=== PATIENT | female | born 1990 | race Caucasian/White ===

== ENCOUNTER 2020-10-13 03:55 | Inpatient (IN) | payer BC, OTHER ==
[2020-10-13] MEDS ORDERED: CARBOPROST TROMETHAMINE 250 MCG/ML 1 ML AMP IM PRN (04:39)
[2020-10-13] MEDS ORDERED: TERBUTALINE 1 MG/ML VIAL SQ PRN (04:39)
[2020-10-13] MEDS ORDERED: OXYTOCIN 10 UNIT/ML 1 ML VIAL IM PRN (04:39)
[2020-10-13] MEDS ORDERED: METHYLERGONOVINE 0.2 MG/ML 1 ML AMP IM PRN (04:39)
[2020-10-13] MEDS ORDERED: LIDOCAINE 0.5% (PF) 5 MG/ML (50 ML SDV) SQ PRN (04:39)
[2020-10-13] MEDS ORDERED: AMPICILLIN 2,000 MG in SODIUM CHLORIDE 0.9% 100 ML IVPB STA (04:41)
[2020-10-13] MEDS ORDERED: OXYTOCIN 30 UNITS/500 ML NS 30 UNIT in SALINE 1 500ML.BAG IV SCH ×2 (04:45→13:45)
[2020-10-13] MEDS: LACTATED RINGERS 1,000 ML IV SCH ×2 (05:24→07:53)
[2020-10-13 05:47] LABS: Basophils % (A) 1 %; Eosinophils % (A) 1 %; HCT 35.8 % (34.0-46.0); HGB 11.4 gm/dL (11.4-16.0); Lymphocytes # (A) 3.2 k/uL (1.0-4.8); Lymphocytes % (A) 44 %; MCH 29.3 pg (25.0-35.0); MCHC 31.8 g/dL (31.0-37.0); MCV 92.3 fL (80.0-100.0); Mean Platelet Volume 12.8; Monocytes # (A) 0.4 k/uL (0-1.0); Monocytes % (A) 6 %; Neutrophils # (A) 3.3 k/uL (1.3-7.7); Neutrophils % (A) 46 %; Platelet Count 146 k/uL (150-450); RBC 3.88 m/uL (3.80-5.40); RDW 15.4 % (11.5-15.5); WBC 7.1 k/uL (3.8-10.6)
[2020-10-13] MEDS ORDERED: LABETALOL 5 MG/ML VIAL MDV IVP PRN ×4 (05:54→17:26)
[2020-10-13] MEDS ORDERED: hydrALAZINE HCL 20 MG/ML 1 ML VIAL IVP PRN (05:54)
[2020-10-13 06:12] LABS: Appearance,Urine Clear (Clear); Bilirubin,Urine Negative (Negative); Color,Urine Yellow; Glucose,Urine (UA) Negative (Negative); Ketones,Urine Negative (Negative); PH, Urine 6.5 (5.0-8.0); Protein,Urine 2+ (Negative)
[2020-10-13 06:13] LABS: Blood,Urine Negative (Negative); Leukocyte Esterase,Urine Negative (Negative); Nitrite,Urine Negative (Negative); Urobilinogen,Urine <2.0 mg/dL (<2.0)
[2020-10-13 06:16] LABS: Uric Acid 10.2 mg/dL (3.7-7.4)
[2020-10-13 06:31] LABS: Creatinine,Urine Random 93.2 mg/dL
--- NOTE | 2020-10-13 06:31 | P.HPOB ---
History of Present Illness H&P Date: 10/13/20 Chief Complaint: SROM 9-year-old presents at 36 weeks and 1 day with rupture of membranes around 3:00 this morning. The fluid is clear and her cervix is 3 cm dilated, 60% effaced, and -2 station. She is rakesh irregularly. heart tones 1:30 with moderate variability and reactive. Her blood pressures are elevated up to 170s over 100s. Labetalol was brought to the floor for repeat push it her blood pressures came down to 150s over 80s. Labs were drawn and her platelet count is 146 and she has 2+ protein, PC ratio was not back yet. Patient denies headache, vision changes, right upper quadrant pain. Review of Systems All systems: negative Constitutional: Denies chills, Denies fever Eyes: denies blurred vision, denies pain Ears, nose, mouth and throat: Denies headache, Denies sore throat Cardiovascular: Denies chest pain, Denies shortness of breath Respiratory: Denies cough Gastrointestinal: Denies abdominal pain, Denies diarrhea, Denies nausea, Denies vomiting Genitourinary: Denies dysuria, Denies hematuria Musculoskeletal: Denies myalgias Integumentary: Denies pruritus, Denies rash Neurological: Denies numbness, Denies weakness Psychiatric: Denies anxiety, Denies depression Endocrine: Denies fatigue, Denies weight change Past Medical History Past Medical History: No Reported History Additional Past Medical History / Comment(s): Obstetric history: This is her first and she's seen Dr. Nagel since 7 weeks gestation. Blood type is A+, rubella immune, RPR nonreactive, hepatitis B negative, HIV nonreactive. GBS positive. She did have a choroid plexus cyst and echogenic intracardiac focus in the tricuspid valve: Both of those have resolved. History of Any Multi-Drug Resistant Organisms: None Reported Additional Past Surgical History / Comment(s): [place] teeth Past Anesthesia/Blood Transfusion Reactions: No Reported Reaction Past Psychological History: No Psychological Hx Reported Smoking Status: Never smoker Past Alcohol Use History: None Reported Past Drug Use History: None Reported - Past Family History Mother Family Medical History: No Reported History Medications and Allergies Home Medications Medication Instructions Recorded Confirmed Type Acetaminophen Tab [Tylenol Tab] 500 mg PO Q6H 10/13/20 10/13/20 History Pnv No.95/Ferrous Fum/Folic AC 1 tab PO DAILY 10/13/20 10/13/20 History [ Multivitamin Tablet] Allergies Allergy/AdvReac Type Severity Reaction Status Date / Time No Known Allergies Allergy Verified 10/13/20 04:22 Exam Osteopathic Statement: *. No significant issues noted on an osteopathic structural exam other than those noted in the History and Physical/Consult. Vital Signs Temp Pulse Resp BP Pulse Ox 10/13/20 04:28 98.1 F 52 L 16 169/99 100 Intake and Output 10/12/20 10/12/20 10/13/20 14:59 22:59 06:59 Output Total 200 Balance -200 Output: Urine 200 Straight 100 Other: Weight 59.421 kg Heart: Regular rate and rhythm Lungs: Clear to auscultation bilaterally Abdomen: Soft, nontender Extremities: Negative Homans sign, 2+ out of 4 DTR Results Result Diagrams: 10/13/20 05:24 10/13/20 05:24 Abnormal Lab Results - Last 24 Hours (Table) 10/13/20 10/13/20 Range/Units 05:24 05:24 Plt Count 146 L (150-450) k/uL BUN 22 H (7-17) mg/dL Uric Acid 10.2 H (3.7-7.4) mg/dL Assessment and Plan (1) Spontaneous rupture of membranes Current Visit: Yes Status: Acute Code(s): TNX4911 - SNOMED Code(s): 672410455 (2) Preeclampsia Current Visit: Yes Status: Acute Code(s): O14.90 - UNSPECIFIED PRE- ECLAMPSIA, UNSPECIFIED TRIMESTER SNOMED Code(s): 354155821 Plan: 1. Admit to family place 2. Monitor blood pressures closely and treat accordingly 3. Seizure precautions 4. Pitocin augmentation if necessary 5. Anticipate normal vaginal delivery
[2020-10-13 06:50] LABS: Protein/Creatinine Ratio,Urine 3.659
[2020-10-13] MEDS ORDERED: SODIUM CHLORIDE 0.9% 100 ML BAG ONE (07:33)
[2020-10-13] MEDS ORDERED: fentaNYL (PF) 50 MCG/ML 5 ML AMP ONE (07:33)
[2020-10-13] MEDS ORDERED: ROPIVACAINE 5MG/ML 20ML VIAL ONE (07:33)
[2020-10-13] MEDS ORDERED: MAGNESIUM SULFATE-WATER PMX 4 GM in WATER FOR INJECTION 1 100ML.BAG IVPB ONE ×2 (09:02→09:08)
--- NOTE | 2020-10-13 09:05 | P.PN ---
Progress Note - Text Progress Note Date: 10/13/20 Patient is seen and evaluated. Her blood pressures are improved. She has a mild headache on the right side no other signs or symptoms of severe features, however, labs have returned and her platelets are 146 in her protein creatinine ratio 3.7. It is the diagnosis of preeclampsia has been made and we will initiate magnesium sulfate therapy with a 4 g bolus followed by 2 g an hour until she delivers. She is now already 7-7/2 cm will plan to use straight catheter with her epidural and an decide on whether not is that [facility] Marshall catheter once we removed Marshall but forward with her delivery. We'll maintain very strict I's and O's and be very cautious with fluids moving forward as well. All questions were answered for she and her family and will plan continue current care for now.
[2020-10-13] MEDS: AMPICILLIN 1,000 MG in SODIUM CHLORIDE 0.9% 50 ML IVPB SCH (09:13)
[2020-10-13] MEDS: MAGNESIUM SULFATE-WATER PMX 20 GM in WATER FOR INJECTION 1 500ML.BAG IV SCH ×3 (09:56→22:00)
[2020-10-13] MEDS: IBUPROFEN 600 MG TAB PO PRN (13:25)
[2020-10-13] MEDS ORDERED: BENZOCAINE/MENTHOL SPRAY 1 GM/SPRAY AEROSOL TOPICAL PRN (13:44)
[2020-10-13] MEDS ORDERED: bisacodyL 10 MG SUPP RECTAL PRN (13:44)
[2020-10-13] MEDS ORDERED: ZOLPIDEM 5 MG TAB PO PRN (13:44)
[2020-10-13] MEDS ORDERED: diphenhydrAMINE 25 MG CAP PO PRN (13:44)
[2020-10-13] MEDS ORDERED: diphenhydrAMINE 50 MG/ML 1 ML VIAL IVP PRN (13:44)
[2020-10-13] MEDS ORDERED: SIMETHICONE 80 MG CHEWABLE PO PRN (13:44)
[2020-10-13] MEDS ORDERED: LANOLIN CREAM 5 GM TUBE TOPICAL PRN (13:44)
[2020-10-13] MEDS ORDERED: HYDROCORTISONE 2.5% RECTAL CREAM 30 GM TUBE RECTAL PRN (13:44)
[2020-10-13] MEDS ORDERED: ACETAMINOPHEN TAB 325 MG TAB PO PRN (13:44)
--- NOTE | 2020-10-13 13:56 | P.PROBDLV ---
Vaginal Delivery Note - . Vaginal Delivery Note: Normal spontaneous vaginal delivery viable male infant Apgars 8 and 9 delivery time is 1226 hrs. Please see dictated H&P and progress notes per Dr. Jeffers on this patient's admission. In brief summary this is a pleasant 29-year-old 1 para 0 female 36 and one sevenths weeks gestation who is admitted to labor and delivery with spontaneous rupture membranes at approximately 3:00 this morning. On admission patient was found to be grossly ruptured. Patient also was found to have elevated blood pressures and preeclampsia labs were significantly abnormal. Patient was placed on magnesium sulfate and given IV antibiotics. Patient's labor progressed quickly and she pushed for approximately 1 hour and 15 minutes. Patient pushed the head to the perineum. Posterior perineum was infiltrated with 1% lidocaine and a midline episiotomy is made to facilitate delivery. We then have controlled delivery of the infant's head over the perineum. Mouth and nares are bulb suctioned. There was a nuchal cord that was easily reduced. With gentle downward traction we then have deliver the anterior posterior shoulder and rest this 's body. This is a vigorous viable male infant Apgars 8 and 9 delivery time is 1226 hrs. After delivery of the infant the umbilical cord is loud quit pulsating is then doubly clamped and cut. The placenta spontaneously delivered intact. Inspection of the perineum shows a second-degree laceration was repaired with 3-0 Vicryl in the usual fashion. Excellent reapproximation is noted. All counts are correct 3. Estimated blood loss is 100 mL. and mother are stable delivery room. Patient will be continued on oral labetalol and IV magnesium sulfate.
[2020-10-13] MEDS ORDERED: LABETALOL 100 MG TAB PO SCH (14:00)
[2020-10-13] MEDS: LABETALOL 100 MG TAB PO SCH (18:26)
--- NOTE | 2020-10-13 22:46 | P.PN ---
Progress Note - Text Progress Note Date: 10/13/20 Patient is seen and evaluated again this evening. She is significant the symptomatic on the mag sulfate and a stat mag level was drawn revealing 9.6. This is above the therapeutic level and will decrease mag sulfate to 1 g an hour. Her blood pressures have remained labile. Last few blood pressures following a normal 130/80 blood pressure in the 160s over 90s again. Due to this will increase her labetalol dosage to 200 mg 4 times a day and reevaluate once blood pressures are normalized for long-term management. She denies any other signs or symptoms of preeclampsia and other than being tired and feeling unsteady with the mag sulfate she is feeling well. Deep tendon reflexes are dec reased to 1+.
[2020-10-14] MEDS: LABETALOL 200 MG TAB PO SCH ×4 (00:12→18:19)
[2020-10-14] MEDS: LACTATED RINGERS 1,000 ML IV SCH (00:12)
[2020-10-14] MEDS: IBUPROFEN 600 MG TAB PO PRN (00:12)
[2020-10-14] MEDS: AMPICILLIN 1,000 MG in SODIUM CHLORIDE 0.9% 50 ML IVPB SCH (05:44)
[2020-10-14] MEDS: LABETALOL 100 MG TAB PO SCH (05:44)
[2020-10-14 05:54] LABS: Basophils % (A) 0 %; Eosinophils % (A) 0 %; HCT 31.6 % (34.0-46.0); HGB 10.1 gm/dL (11.4-16.0); Lymphocytes # (A) 2.7 k/uL (1.0-4.8); Lymphocytes % (A) 21 %; MCH 29.3 pg (25.0-35.0); MCV 91.7 fL (80.0-100.0); Mean Platelet Volume 12.7; Monocytes # (A) 0.5 k/uL (0-1.0); Monocytes % (A) 4 %; Neutrophils # (A) 9.9 k/uL (1.3-7.7); Neutrophils % (A) 74 %; Platelet Count 126 k/uL (150-450); RBC 3.44 m/uL (3.80-5.40); RDW 15.9 % (11.5-15.5); WBC 13.3 k/uL (3.8-10.6)
[2020-10-14 07:17] LABS: Anisocytosis (M) Present; Large Platelets Present; Polychromasia Present
--- NOTE | 2020-10-14 07:32 | P.PNOBGVD ---
Subjective - Subjective Principal diagnosis: day 1: Severe preeclampsia Interval history: Patient is seen and evaluated this morning. Her blood pressures are significantly improved through the night with increasing her labetalol to 200 mg every 6 hours. May very well be able to decrease to 2-8 hours once blood pressures are fully stabilized. Mag level is pending this morning but she appears more awake and alert following the decrease in her magnesium sulfate to 1 g per hour. Overall she looks well and she is feeling well. She continues to have no signs or symptoms of or features of severe preeclampsia with continue current care for now. We'll plan discontinuation of mag sulfate a 24-hour with removal of Marshall catheter and then close observational care and treatment moving forward. Patient reports: Reports appetite normal, Reports voiding normally : doing well Objective - Latest Vital Signs Latest vital signs: Vital Signs Temp Pulse Resp BP BP Pulse Ox 10/14/20 06:30 58 L 16 126/81 97 10/14/20 05:30 58 L 16 126/76 96 10/14/20 04:30 65 16 120/79 96 10/14/20 03:30 74 14 126/84 98 10/14/20 02:30 56 L 16 127/83 98 10/14/20 01:30 65 16 137/82 10/14/20 00:30 60 16 137/82 10/13/20 23:30 96.5 F L 73 16 124/81 98 10/13/20 22:30 67 16 137/79 99 10/13/20 21:30 61 16 163/81 10/13/20 20:31 61 16 139/79 10/13/20 19:41 95.9 F L 65 16 163/97 98 10/13/20 19:00 63 16 158/93 10/13/20 18:00 96 F L 65 14 156/93 10/13/20 17:00 18 169/95 10/13/20 16:15 96.5 F L 56 L 19 163/88 10/13/20 15:30 62 16 159/96 97 10/13/20 14:30 99.0 F 62 16 155/89 97 10/13/20 14:00 38 L 17 155/91 10/13/20 13:29 98.2 F 81 17 158/90 10/13/20 13:15 90 18 139/90 10/13/20 13:00 92 18 152/87 06/14/21 12:45 88 18 148/85 10/13/20 12:30 99.3 F 113 H 18 144/72 Intake and Output 10/13/20 10/14/20 10/14/20 22:59 06:59 14:59 Intake Total 1030 440 Output Total 3050 1250 Balance -2019 Intake: IV 500 200 Magnesium Sulfate-Water 200 Pmx 20 gm In Water For Injection 1 500ml.bag @ 1 GM/HR 25 mls/hr IV .Q20H MARIA G Rx#:[id number] Magnesium Sulfate-Water 500 Pmx 20 gm In Water For Injection 1 500ml.bag @ 2 GM/HR 50 mls/hr IV .Q10H MARIA G Rx#:[id number] Intake, IV Titration 530 240 Amount Lactated Ringers 1,000 ml 30 240 @ 125 mls/hr IV .Q8H MARIA G Rx#:[id number] Magnesium Sulfate-Water 500 Pmx 20 gm In Water For Injection 1 500ml.bag @ 2 GM/HR 50 mls/hr IV .Q10H MARIA G Rx#:[id number] Output: Urine 3050 1250 Other: Voiding Method Indwelling Catheter Weight 57.334 kg - Exam Lungs: bilateral: normal Chest: Normal S1, Normal S2 Extremities: Present: normal Abdomen: Present: normal appearance, soft Uterus: Present: normal, firm - Labs Labs: Abnormal Lab Results - Last 24 Hours (Table) 10/13/20 10/14/20 Range/Units 20:06 05:29 WBC 13.3 H (3.8-10.6) k/uL RBC 3.44 L (3.80-5.40) m/uL Hgb 10.1 L (11.4-16.0) gm/dL Hct 31.6 L (34.0-46.0) % RDW 15.9 H (11.5-15.5) % Plt Count 126 L (150-450) k/uL Neutrophils # 9.9 H (1.3-7.7) k/uL Magnesium 9.6 H* (1.6-2.3) mg/dL
[2020-10-14] MEDS: SENNOSIDES-DOCUSATE SODIUM 1 EACH TAB PO PRN ×2 (07:41→20:09)
[2020-10-14 12:07] LABS: Albumin 2.4 g/dL (3.5-5.0); Calcium 7.4 mg/dL (8.4-10.2); Potassium 4.6 mmol/L (3.5-5.1); Total Bilirubin 0.4 mg/dL (0.2-1.3); Total Protein 4.8 g/dL (6.3-8.2)
[2020-10-14 20:50] VITALS: RESP 16
[2020-10-15] MEDS: LABETALOL 200 MG TAB PO SCH ×2 (00:48→06:06)
[2020-10-15] MEDS: LACTATED RINGERS 1,000 ML IV SCH ×3 (00:56→10:48)
[2020-10-15] MEDS: IBUPROFEN 600 MG TAB PO PRN ×2 (04:11→14:18)
[2020-10-15] MEDS: SENNOSIDES-DOCUSATE SODIUM 1 EACH TAB PO PRN (08:01)
[2020-10-15] MEDS: MAGNESIUM SULFATE-WATER PMX 20 GM in WATER FOR INJECTION 1 500ML.BAG IV SCH (10:48)
--- NOTE | 2020-10-15 13:30 | P.DS ---
Providers Date of admission: 10/13/20 04:24 Expected date of discharge: 10/15/20 Attending physician: Jn Nagel Primary care physician: Stated None Hospital Course: Patient is overall doing very well. She denies any signs or symptoms of preeclampsia at this time. Her blood pressures of been in the 130s to 140s over 80s on 200 mg of labetalol every 86 hours. We're trying to decrease to every 8 hours prior to discharge and we'll check her blood pressure another couple of times prior discharge her blood pressures remained stable plan to 8 hour labetalol at home. All questions are answered for her and discharge instruction were very thoroughly reviewed including discharge instructions with preeclamptic precautions. Her heart is otherwise regular, lungs clear, extremities without pain. Abdomen soft uterus is firm and lochia is reported light. She is feeling well at this time and will plan to follow-up on Tuesday for a blood pressure check in our office. All the questions are answered for her and she is stable for discharge this time. Patient Condition at Discharge: Good Plan - Discharge Summary New Discharge Prescriptions: New Labetalol [Trandate] 200 mg PO TID 30 Days #90 tablet No Action Acetaminophen Tab [Tylenol Tab] 500 mg PO Q6H Pnv No.95/Ferrous Fum/Folic AC [ Multivitamin Tablet] 1 tab PO DAILY Discharge Medication List Acetaminophen Tab [Tylenol Tab] 500 mg PO Q6H 10/13/20 [History] Pnv No.95/Ferrous Fum/Folic AC [ Multivitamin Tablet] 1 tab PO DAILY 10/13/20 [History] Labetalol [Trandate] 200 mg PO TID 30 Days #90 tablet 10/15/20 [Rx] Follow up Appointment(s)/Referral(s): Jn Nagel MD [STAFF PHYSICIAN] - 11/24/20 11:15 am Activity/Diet/Wound Care/Special Instructions: The lifting, limit stairs and driving, and pelvic rest. If any high temperatures, heavy bleeding, or severe pain call my office. Instructions for pre-clamped symptoms also again reviewed in great detail and she will report to the emergency room for any severe headache, epigastric pain, visual changes or any other signs or symptoms of and 2. Discharge Disposition: HOME SELF-CARE
[2020-10-15] MEDS ORDERED: LABETALOL 200 MG TAB PO SCH (14:30)
[2020-10-15 17:08] VITALS: BP 147/79; PULSE 57; TEMP 98.7
== END 2020-10-15 18:00 | disposition home or self-care (01) | DRG 807 ==
LOC: FBPOP 03:55 → 4FBP 04:24
PROVIDERS: ADMIT Obstetrics & Gynecology; ATTEND Obstetrics & Gynecology
PROC: 10E0XZZ Delivery of Products of Conception, External Approach (ICD-10-PCS; principal; 2020-10-13)
PROC: 0KQM0ZZ Repair Perineum Muscle, Open Approach (ICD-10-PCS; 2020-10-13)
DX: O15.1 Eclampsia complicating labor (principal); Z37.0 Single live birth; O14.14 Severe pre-eclampsia complicating childbirth; O69.81X0 Labor and delivery complicated by cord around neck, without compression, not applicable or unspecified; O70.1 Second degree perineal laceration during delivery; O99.824 Streptococcus B carrier state complicating childbirth; Z3A.36 36 weeks gestation of pregnancy
CPT/HCPCS: 59025; 80053; 81001; 82565; 82570; 83615; 83735; 84112; 84156; 84450; 84460; 84520; 84550; 85025; 86850; 86900; 86901; 88307; 99213

== ENCOUNTER 2022-07-29 12:23 | Emergency (ER) | payer OTHER ==
[2022-07-29 12:27] VITALS: RESP 18; TEMP 98
--- NOTE | 2022-07-29 12:51 | ED ---
General Adult HPI - General Chief complaint: Chest Pain Stated complaint: Chest tightness, headache Time Seen by Provider: 07/29/22 12:28 Source: patient Mode of arrival: ambulatory Limitations: no limitations - History of Present Illness Initial comments: Dictation was produced using [employer] dictation software. please excuse any grammatical, word or spelling errors. Chief Complaint: 31-year-old female presents to the emergency department with chest pain History of Present Illness: Patient's 31-year-old female with recently diagnosed hypertension she was up today around 7 AM. She after waking had a very mild earlyheadache. Progressed to a concert to become more noticeable. This is not the worse headache of her life. She has headaches that are usually in the back of her head. Sustained emergency department her headache is clearly resolved. She was recently started on lisinopril. Patient was at work when her coworkers felt like she did appear well so she came to the ER. She had some waxing and waning blood pressures since this morning. Denies any fevers. She did have some chest pressure that smiled. Resolved on its own. Nonradiating. She did feel like she felt clammy. She does have family history of cardiac disease. The ROS documented in this emergency department record has been reviewed and confirmed by me. Those systems with pertinent positive or negative responses have been documented in the HPI. All other systems are other negative and/or noncontributory. PHYSICAL EXAM: General Impression: Alert and oriented x3, not in acute distress HEENT: Normocephalic atraumatic, extra-ocular movements intact, pupils equal and reactive to light bilaterally, mucous membranes moist. Cardiovascular: Heart regular rate and rhythm Chest: Able to complete full sentences, no retractions, no tachypnea Abdomen: abdomen soft, non-tender, non-distended, no organomegaly Musculoskeletal: Pulses present and equal in all extremities, no peripheral edema Motor: no focal deficits noted Neurological: CN II-XII grossly intact, no focal motor or sensory deficits noted Skin: Intact with no visualized rashes Psych: Normal affect and mood ED course: 31-year-old feel presents emergency Department with multiple complaints. Primary complaint is chest pain. Chest pain is atypical with typical features. Vital signs upon arrival are within acceptable limits. Nursing notes and chart review was performed EKG interpreted by me: Ventricular rate 74, sinus rhythm,. 137, QRS 89, QTC 394. No LA prolongation, no QTC prolongation, no ST or T-wave changes noted. Overall, this EKG is unremarkable Was pt. sent in by a medical professional or institution (LEON Arreguin, ENGINEERING ILLUSTRATOR, urgent ca re, hospital, or [facility]...) When possible be specific @ -No Did you speak to anyone other than the patient for history (EMS, parent, family, police, friend...)? What history was obtained from this source @ -No Did you review nursing and triage notes (agree or disagree)? Why? @ -I reviewed and agree with nursing and triage notes Were old charts reviewed (outside hosp., previous admission, EMS record, old EKG, old radiological studies, urgent care reports/EKG's, [facility] records)? Report findings @ -No old charts were reviewed Differential Diagnosis (chest pain, altered mental status, abdominal pain women, abdominal pain men, vaginal bleeding, musculoskeletal, weakness, fever, dyspnea, syncope, headache, dizziness, GI bleed, back pain, seizure, CVA, palpatations, mental health)? @ -Differential Chest Pain: Stable Angina, Unstable Angina, STEMI, NSTEMI Aortic Dissection, Pneumothorax, Musculoskeletal, Esophageal Spasm GERD, Cholecystitis, Pancreatitis, Zoster, this is not meant to be an all-inclusive list. EKG interpreted by me (3pts min.). @ -See above X-rays interpreted by me (1pt min.). @ -non acute CT interpreted by me (1pt min.). @ -None done U/S interpreted by me (1pt. min.). @ -None done What testing was considered but not performed or refused? (CT, X-rays, U/S, labs)? Why? @ -None What meds were considered but not given or refused? Why? @ -None Did you discuss the management of the patient with other professionals (pro fessionals i.e. LEON Arreguin, ENGINEERING ILLUSTRATOR, lab, RT, psych nurse, geriatric social worker, advertising coordinator, teacher, forestry technical officer, medical case worker)? Give summary @ -No Was smoking cessation discussed for >3mins.? @ -No Was critical care preformed (if so, how long)? @ -No Were there social determinants of health that impacted care today? How? (Homelessness, low income, unemployed, alcoholism, drug addiction, transporta tion, low edu. Level, literacy, decrease access to med. care, longterm, rehab)? @ -No Was there de-escalation of care discussed even if they declined (Discuss DNR or withdrawal of care, Hospice)? DNR status @ -No What co-morbidities impacted this encounter? (DM, HTN, Smoking, COPD, CAD, Cancer, CVA, ARF, Chemo, Hep., AIDS, mental health diagnosis, sleep apnea, morbid obesity)? @ -None Was patient admitted / discharged? Hospital course, mention meds given and route, prescriptions, significant lab abnormalities, going to OR and other pertinent info. @ -31-year-old feel presents emergency department with atypical chest pain typical features. Laboratory evaluation is unremarkable. Patient evaluated at bedside at 2:55 PM denies any symptoms at this time. Pain is atypical with typical features. She has no high-risk features. Disposition options were discussed with patient. After sure decision-making she would prefer to be discharged follow up with primary care doctor. Patient given her strict return precautions. Undiagnosed new problem with uncertain prognosis? @ -No Drug Therapy requiring intensive monitoring for toxicity (Heparin, Nitro, Insulin, Cardizem)? @ -No Were any procedures done? @ -No Diagnosis/symptom? Acute, or Chronic, or Acute on Chronic? Uncomplicated (without systemic symptoms) or Complicated (systemic symptoms)? @ -1. Acute chest pain, no high-risk features Side effects of treatment? @ -No Exacerbation, Progression, or Severe Exacerbation? @ -No Poses a threat to life or bodily function? How? (Chest pain, [place], [place], pneumonia, PE, COPD, DKA, ARF, appy, cholecystitis, CVA, Diverticulitis, Homicidal, Suicidal, threat to staff... and all critical care pts) @ -yes - Related Data Home Medications Medication Instructions Recorded Confirmed Acetaminophen Tab [Tylenol Tab] 500 mg PO Q6H 10/13/20 10/13/20 Pnv No.95/Ferrous Fum/Folic AC 1 tab PO DAILY 10/13/20 10/13/20 [ Multivitamin Tablet] Previous Rx's Medication Instructions Recorded Labetalol [Trandate] 200 mg PO TID 30 Days #90 tablet 10/15/20 Allergies Allergy/AdvReac Type Severity Reaction Status Date / Time No Known Allergies Allergy Verified 07/29/22 12:27 Review of Systems ROS Statement: Those systems with pertinent positive or pertinent negative responses have been documented in the HPI. ROS Other: All systems not noted in ROS Statement are negative. Past Medical History Past Medical History: No Reported History Additional Past Medical History / Comment(s): Obstetric history: This is her first and she's seen Dr. Nagel since 7 weeks gestation. Blood type is A+, rubella immune, RPR nonreactive, hepatitis B negative, HIV nonreactive. GBS positive. She did have a choroid plexus cyst and echogenic intracardiac focus in the tricuspid valve: Both of those have resolved. History of Any Multi-Drug Resistant Organisms: None Reported Additional Past Surgical History / Comment(s): [place] teeth Past Anesthesia/Blood Transfusion Reactions: No Reported Reaction Past Psychological History: No Psychological Hx Reported Smoking Status: Never smoker Past Alcohol Use History: None Reported Past Drug Use History: None Reported - Past Family History Mother Family Medical History: No Reported History General Exam Limitations: no limitations Course Vital Signs 07/29/22 07/29/22 12:25 14:27 Temperature 98 F Pulse Rate 86 77 Respiratory 18 18 Rate Blood Pressure 156/109 128/92 O2 Sat by Pulse 99 98 Oximetry Medical Decision Making - Lab Data Result diagrams: 07/29/22 12:55 07/29/22 12:55 Lab Results 07/29/22 07/29/22 07/29/22 Range/Units 12:55 12:55 12:55 WBC 6.8 (3.8-10.6) k/uL RBC 4.79 (3.80-5.40) m/uL Hgb 14.0 (11.4-16.0) gm/dL Hct 42.6 (34.0-46.0) % MCV 89.0 (80.0-100.0) fL MCH 29.3 (25.0-35.0) pg MCHC 32.9 (31.0-37.0) g/dL RDW 13.1 (11.5-15.5) % Plt Count 285 (150-450) k/uL MPV 8.0 Neutrophils % 44 % Lymphocytes % 47 % Monocytes % 5 % Eosinophils % 1 % Basophils % 1 % Neutrophils # 3.0 (1.3-7.7) k/uL Lymphocytes # 3.2 (1.0-4.8) k/uL Monocytes # 0.3 (0-1.0) k/uL Eosinophils # 0.1 (0-0.7) k/uL Basophils # 0.1 (0-0.2) k/uL PT 12.0 (9.0-12.0) sec INR 1.2 H (<1.2) APTT 26.2 (22.0-30.0) sec Sodium 138 (137-145) mmol/L Potassium 4.7 (3.5-5.1) mmol/L Chloride 105 (98-107) mmol/L Carbon Dioxide 26 (22-30) mmol/L Anion Gap 7 mmol/L BUN 16 (7-17) mg/dL Creatinine 0.77 (0.52-1.04) mg/dL Est GFR (CKD-EPI)AfAm >90 (>60 ml/min/1.73 sqM) Est GFR (CKD-EPI)NonAf >90 (>60 ml/min/1.73 sqM) Glucose 90 (74-99) mg/dL Calcium 9.4 (8.4-10.2) mg/dL Magnesium 2.1 (1.6-2.3) mg/dL Total Bilirubin 0.5 (0.2-1.3) mg/dL AST 20 (14-36) U/L ALT 16 (4-34) U/L Alkaline Phosphatase 50 (38-126) U/L Troponin I (0.000-0.034) ng/mL Total Protein 7.6 (6.3-8.2) g/dL Albumin 4.3 (3.5-5.0) g/dL 07/29/22 Range/Units 12:55 WBC (3.8-10.6) k/uL RBC (3.80-5.40) m/uL Hgb (11.4-16.0) gm/dL Hct (34.0-46.0) % MCV (80.0-100.0) fL MCH (25.0-35.0) pg MCHC (31.0-37.0) g/dL RDW (11.5-15.5) % Plt Count (150-450) k/uL MPV Neutrophils % % Lymphocytes % % Monocytes % % Eosinophils % % Basophils % % Neutrophils # (1.3-7.7) k/uL Lymphocytes # (1.0-4.8) k/uL Monocytes # (0-1.0) k/uL Eosinophils # (0-0.7) k/uL Basophils # (0-0.2) k/uL PT (9.0-12.0) sec INR (<1.2) APTT (22.0-30.0) sec Sodium (137-145) mmol/L Potassium (3.5-5.1) mmol/L Chloride (98-107) mmol/L Carbon Dioxide (22-30) mmol/L Anion Gap mmol/L BUN (7-17) mg/dL Creatinine (0.52-1.04) mg/dL Est GFR (CKD-EPI)AfAm (>60 ml/min/1.73 sqM) Est GFR (CKD-EPI)NonAf (>60 ml/min/1.73 sqM) Glucose (74-99) mg/dL Calcium (8.4-10.2) mg/dL Magnesium (1.6-2.3) mg/dL Total Bilirubin (0.2-1.3) mg/dL AST (14-36) U/L ALT (4-34) U/L Alkaline Phosphatase (38-126) U/L Troponin I <0.012 (0.000-0.034) ng/mL Total Protein (6.3-8.2) g/dL Albumin (3.5-5.0) g/dL Disposition Clinical Impression: Chest pain Disposition: HOME SELF-CARE Condition: Good Instructions (If sedation given, give patient instructions): Chest Pain (ED) Is patient prescribed a controlled substance at d/c from ED?: No Referrals: Karen Smith MD [Primary Care Provider] - 1-2 days Time of Disposition: 14:55
[2022-07-29 13:38] LABS: Basophils # (A) 0.1 k/uL (0-0.2); Basophils % (A) 1 %; Eosinophils # (A) 0.1 k/uL (0-0.7); Eosinophils % (A) 1 %; HCT 42.6 % (34.0-46.0); Lymphocytes # (A) 3.2 k/uL (1.0-4.8); Lymphocytes % (A) 47 %; MCH 29.3 pg (25.0-35.0); MCHC 32.9 g/dL (31.0-37.0); Monocytes # (A) 0.3 k/uL (0-1.0); Monocytes % (A) 5 %; Neutrophils % (A) 44 %; Platelet Count 285 k/uL (150-450); RBC 4.79 m/uL (3.80-5.40); RDW 13.1 % (11.5-15.5); WBC 6.8 k/uL (3.8-10.6)
[2022-07-29 13:50] LABS: INR 1.2 (<1.2); Partial Thromboplastin Time 26.2 sec (22.0-30.0); Potassium 4.7 mmol/L (3.5-5.1)
[2022-07-29 13:51] LABS: ALT 16 U/L (4-34); AST 20 U/L (14-36); African American GFR (CKD) >90 (>60 ml/min/1.73 sqM); Albumin 4.3 g/dL (3.5-5.0); Alkaline Phosphatase 50 U/L (38-126); Anion Gap 7 mmol/L; Blood Urea Nitrogen 16 mg/dL (7-17); Calcium 9.4 mg/dL (8.4-10.2); Carbon Dioxide 26 mmol/L (22-30); Chloride 105 mmol/L (98-107); Glucose 90 mg/dL (74-99); Magnesium 2.1 mg/dL (1.6-2.3); Non-African American GFR(CKD) >90 (>60 ml/min/1.73 sqM); Sodium 138 mmol/L (137-145); Total Bilirubin 0.5 mg/dL (0.2-1.3); Total Protein 7.6 g/dL (6.3-8.2)
--- NOTE | 2022-07-29 13:54 | XR ---
EXAMINATION TYPE: XR chest 2V DATE OF EXAM: 07/29/2022 COMPARISON: None INDICATION: Chest pain TECHNIQUE: Frontal and lateral views of the chest are obtained. FINDINGS: The heart size is normal. The pulmonary vasculature is normal. The lungs are clear. IMPRESSION: 1. No acute pulmonary process.
[2022-07-29 14:28] VITALS: BP 128/92; PULSE 77
[2022-07-29] MEDS ORDERED: ASPIRIN 81 MG PO STA (14:54)
== END 2022-07-29 15:33 | disposition home or self-care (01) ==
LOC: EC 12:23
DX: R07.89 Other chest pain (principal); I10 Essential (primary) hypertension; Z79.899 Other long term (current) drug therapy
CPT/HCPCS: 36415; 71046; 80053; 83735; 84484; 85025; 85610; 85730; 93005; 99285

== ENCOUNTER 2023-09-14 22:50 | Emergency (ER) | payer OTHER ==
[2023-09-14 23:34] LABS: Basophils # (A) 0.1 k/uL (0-0.2); Basophils % (A) 1 %; Eosinophils # (A) 0.2 k/uL (0-0.7); Eosinophils % (A) 2 %; HCT 42.1 % (34.0-46.0); HGB 13.3 gm/dL (11.4-16.0); Lymphocytes # (A) 4.9 k/uL (1.0-4.8); Lymphocytes % (A) 51 %; MCH 28.2 pg (25.0-35.0); MCHC 31.7 g/dL (31.0-37.0); MCV 89.2 fL (80.0-100.0); Mean Platelet Volume 8.5; Monocytes # (A) 0.5 k/uL (0-1.0); Monocytes % (A) 5 %; Neutrophils # (A) 3.4 k/uL (1.3-7.7); Neutrophils % (A) 36 %; Platelet Count 248 k/uL (150-450); RBC 4.73 m/uL (3.80-5.40); RDW 13.5 % (11.5-15.5); WBC 9.5 k/uL (3.8-10.6)
[2023-09-15 00:11] LABS: ALT 12 U/L (4-34); AST 20 U/L (14-36); African American GFR (CKD) >90 (>60 ml/min/1.73 sqM); Albumin 4.4 g/dL (3.5-5.0); Alkaline Phosphatase 55 U/L (38-126); Anion Gap 9 mmol/L; Blood Urea Nitrogen 25 mg/dL (7-17); Calcium 9.5 mg/dL (8.4-10.2); Carbon Dioxide 26 mmol/L (22-30); Chloride 103 mmol/L (98-107); Glucose 82 mg/dL (74-99); Lipase 199 U/L (23-300); Magnesium 1.9 mg/dL (1.6-2.3); Non-African American GFR(CKD) >90 (>60 ml/min/1.73 sqM); Potassium 3.6 mmol/L (3.5-5.1); Sodium 138 mmol/L (137-145); Total Bilirubin 0.4 mg/dL (0.2-1.3); Total Protein 7.7 g/dL (6.3-8.2)
[2023-09-15 00:21] LABS: Partial Thromboplastin Time 26.2 sec (22.0-30.0); Prothrombin Time 11.3 sec (10.0-12.5)
--- NOTE | 2023-09-15 00:32 | XR ---
EXAM: XR Chest, 2 Views CLINICAL HISTORY: ITS.REASON XR Reason: Chest Pain TECHNIQUE: Frontal and lateral views of the chest. COMPARISON: No relevant prior studies available. FINDINGS: Lungs: Unremarkable. No consolidation. Pleural space: Unremarkable. No pneumothorax. Heart: Unremarkable. No cardiomegaly. Mediastinum: Unremarkable. Normal mediastinal contour. Bones/joints: Unremarkable. No acute fracture. IMPRESSION: No consolidation.
[2023-09-15] MEDS: KETOROLAC 15 MG/ML 1 ML VIAL IVP STA (01:30)
--- NOTE | 2023-09-15 01:30 | ED ---
Chest Pain HPI - General Chief Complaint: Chest Pain Stated Complaint: chest pain, high BP Time Seen by Provider: 09/14/23 22:55 Source: patient Mode of arrival: ambulatory Limitations: no limitations - History of Present Illness Initial Comments: 32-year-old female with past medical history of hypertension in who presents to the emergency department reporting chest pain with high blood pressure. States that throughout the day today she has had some pressure in her chest. She did check her blood pressure and it was high. States that she did have issues with high blood pressure when she was however this was resolved when she gave and she is currently not on any medications. She admits to slight difficulty breathing. No fevers, chills or cough. No nausea or vomiting. No history of cardiac disease. No history of DVT or PE. Denies any calf pain or swelling. No concern for at this time. No other alleviating, precipitating or modifying factors - Related Data Home Medications Medication Instructions Recorded Confirmed Acetaminophen Tab [Tylenol Tab] 500 mg PO Q6H 10/13/20 10/13/20 Pnv No.95/Ferrous Fum/Folic AC 1 tab PO DAILY 10/13/20 10/13/20 [ Multivitamin Tablet] Previous Rx's Medication Instructions Recorded Labetalol [Trandate] 200 mg PO TID 30 Days #90 tablet 10/15/20 Allergies Allergy/AdvReac Type Severity Reaction Status Date / Time No Known Allergies Allergy Verified 09/14/23 22:54 Review of Systems ROS Statement: Those systems with pertinent positive or pertinent negative responses have been documented in the HPI. ROS Other: All systems not noted in ROS Statement are negative. Past Medical History Past Medical History: No Reported History Additional Past Medical History / Comment(s): Obstetric history: This is her first and she's seen Dr. Nagel since 7 weeks gestation. Blood type is A+, rubella immune, RPR nonreactive, hepatitis B negative, HIV nonreactive. GBS positive. She did have a choroid plexus cyst and echogenic intracardiac focus in the tricuspid valve: Both of those have resolved. History of Any Multi-Drug Resistant Organisms: None Reported Additional Past Surgical History / Comment(s): [place] teeth Past Anesthesia/Blood Transfusion Reactions: No Reported Reaction Past Psychological History: No Psychological Hx Reported Smoking Status: Never smoker Past Alcohol Use History: None Reported Past Drug Use History: None Reported - Past Family History Mother Family Medical History: No Reported History General Exam Limitations: no limitations General appearance: alert, in no apparent distress Head exam: Present: atraumatic, normocephalic, normal inspection Eye exam: Present: normal appearance, PERRL, EOMI. Absent: scleral icterus, conjunctival injection, periorbital swelling ENT exam: Present: normal exam, mucous membranes moist Neck exam: Present: normal inspection. Absent: tenderness, meningismus, lymphadenopathy Respiratory exam: Present: normal lung sounds bilaterally. Absent: respiratory distress, wheezes, rales, rhonchi, stridor Cardiovascular Exam: Present: regular rate, normal rhythm, normal heart sounds. Absent: systolic murmur, diastolic murmur, rubs, gallop, clicks GI/Abdominal exam: Present: soft, normal bowel sounds. Absent: distended, tenderness, guarding, rebound, rigid Extremities exam: Present: normal inspection, full ROM, normal capillary refill. Absent: tenderness, pedal edema, joint swelling, calf tenderness Back exam: Present: normal inspection Neurological exam: Present: alert, oriented X3, CN II-XII intact Psychiatric exam: Present: normal affect, normal mood Skin exam: Present: warm, dry, intact, normal color. Absent: rash Course Vital Signs 09/14/23 09/15/23 09/15/23 22:51 01:00 02:42 Temperature 98 F 97.9 F Pulse Rate 94 82 81 Respiratory 18 20 16 Rate Blood Pressure 157/120 138/95 131/81 O2 Sat by Pulse 99 100 98 Oximetry Chest Pain MDM - MDM Was pt. sent in by a medical professional or institution ([facility], [employer], urgent care, hospital, or halfway...) When possible be specific @ -No Did you speak to anyone other than the patient for history (EMS, parent, family, police, friend...)? What history was obtained from this source @ -No Did you review nursing and triage notes (agree or disagree)? Why? @ -I reviewed and agree with nursing and triage notes Were old charts reviewed (outside hosp., previous admission, EMS record, old EKG, old radiological studies, urgent care reports/EKG's, halfway records)? Report findings @ -No old charts were reviewed Differential Diagnosis (chest pain, altered mental status, abdominal pain women, abdominal pain men, vaginal bleeding, weakness, fever, dyspnea, syncope, headache, dizziness, GI bleed, back pain, seizure, CVA, palpatations, mental health, musculoskeletal)? @ -Differential Chest Pain: Stable Angina, Unstable Angina, STEMI, NSTEMI Aortic Dissection, Pneumothorax, Musculoskeletal, Esophageal Spasm GERD, Cholecystitis, Pancreatitis, Zoster, this is not meant to be an all-inclusive list. EKG interpreted by me (3pts min.). @ -Yes and demonstrates sinus rhythm with a rate of 80. [place] interval 140. QRS 88. QTc of 396. Mild ST depression 2, 3, aVF. No acute ST segment elevations X-rays interpreted by me (1pt min.). @ -Yes and demonstrates no acute process CT interpreted by me (1pt min.). @ -None done U/S interpreted by me (1pt. min.). @ -None done What testing was considered but not performed or refused? (CT, X-rays, U/S, labs)? Why? @ -None What meds were considered but not given or refused? Why? @ -None Did you discuss the management of the patient with other professionals (professionals i.e. , PA, [employer], lab, RT, psych nurse, social problems specialist, payroll lead, teacher, chief lifestyle officer, case consultant)? Give summary @ -No Was smoking cessation discussed for >3mins.? @ -No Was critical care preformed (if so, how long)? @ -No Were there social determinants of health that impacted care today? How? (H omelessness, low income, unemployed, alcoholism, drug addiction, transportation, low edu. Level, literacy, decrease access to med. care, skilled nursing, rehab)? @ -No Was there de-escalation of care discussed even if they declined (Discuss DNR or withdrawal of care, Hospice)? DNR status @ -No What co-morbidities impacted this encounter? (DM, HTN, Smoking, COPD, CAD, Cancer, CVA, ARF, Chemo, Hep., AIDS, mental health diagnosis, sleep apnea, morbid obesity)? @ -Hypertension in Was patient admitted / discharged? Hospital course, mention meds given and route, prescriptions, significant lab abnormalities, going to OR and other pertinent info. @ -Upon arrival patient was seen and evaluated in room 11. Thorough history and physical exam was performed. IV access was established. Laboratory studies were conducted. Twelve-lead EKG was performed. Patient is placed on continuous pulse ox and cardiac monitoring. Chest x-ray was completed. Upon return the results were discussed with the patient. She does have a second troponin completed which is also negative. I informed her of the diagnosis, differential and treatment options. Patient's blood pressure does improve without any intervention. Patient be discharged home at this time. Recommended echo and Holter monitoring. She is to check her blood pressures twice a day and keep a log. Follow-up with her doctor. Return for any new or worsening symptoms. Patient agreeable to plan she was discharged in stable condition Undiagnosed new problem with uncertain prognosis? @ -No Drug Therapy requiring intensive monitoring for toxicity (Heparin, Nitro, Insulin, Cardizem)? @ -No Were any procedures done? @ -No Diagnosis/symptom? @ -Acute chest pain, history of hypertension in Acute, or Chronic, or Acute on Chronic? @ -Acute Uncomplicated (without systemic symptoms) or Complicated (systemic symptoms)? @ -Complicated Side effects of treatment? @ -No Exacerbation, Progression, or Severe Exacerbation? @ -No Poses a threat to life or bodily function? How? (Chest pain, [place], [place], pneumonia, PE, COPD, DKA, ARF, appy, cholecystitis, CVA, Diverticulitis, Homicidal, Suicidal, threat to staff... and all critical care pts) @ -No Disposition Clinical Impression: Chest pain Disposition: HOME SELF-CARE Condition: Stable Instructions (If sedation given, give patient instructions): Chest Pain (ED) Additional Instructions: We will call you if your second enzyme is elevated. [facility] Check your blood pressure and keep a log to ensure that your blood pressure is not going on controlled. I recommend an echo and Holter monitoring which can be obtained through your primary care office. Return for any new or worsening symptoms Is patient prescribed a controlled substance at d/c from ED?: No Referrals: Karen Smith MD [Primary Care Provider] - 1-2 days Time of Disposition: 02:23
[2023-09-15 03:30] VITALS: BP 131/81; PULSE 81; RESP 16; TEMP 97.9
== END 2023-09-15 02:41 | disposition home or self-care (01) ==
LOC: EC 22:50
DX: R07.9 Chest pain, unspecified (principal)
CPT/HCPCS: 36415 ×2; 93005; 80053; 83690; 83735; 84484 ×2; 85025; 85610; 85730; 81025; 71046; 99285; 96374; J1885